=== PATIENT | female | born 2000 | race Hispanic/Latino ===

== ENCOUNTER 2019-01-24 17:35 | Emergency (ER) | payer MEDICAID ==
--- NOTE | 2019-01-24 18:00 | Emergency Department Report ---
Blank Doc - Documentation Documentation: This is a 18-year-old female that presents with vaginal bleeding. Stated is a bout 14 weeks . This initial assessment/diagnostic orders/clinical plan/treatment(s) is/are subject to change based on patient's health status, clinical progression and re- assessment by fellow clinical providers in the ED. Further treatment and workup at subsequent clinical providers discretion. Patient/guardians urged not to elope from the ED as their condition may be serious if not clinically assessed and managed. Initial orders include: 1- Patient sent to [facility] for further evaluation and treatment 2- labs 3- ua 4- OB US
[2019-01-24 18:02] VITALS: BP 127/59
[2019-01-24 18:42] LABS: Basophils % (Auto) 0.2 % (0.0-1.8); Eosinophils # (Auto) 0.1 K/mm3 (0.0-0.4); Eosinophils % (Auto) 1.5 % (0.0-4.3); Hematocrit 36.7 % (30.3-42.9); Lymphocytes # (Auto) 2.1 K/mm3 (1.2-5.4); Lymphocytes % (Auto) 21.1 % (13.4-35.0); Mean Corpuscular HGB Conc 35 % (30-34); Mean Corpuscular Volume 89 fl (79-97); Monocytes # (Auto) 0.6 K/mm3 (0.0-0.8); Monocytes % (Auto) 5.7 % (0.0-7.3); Platelet Count 197 K/mm3 (140-440); Red Blood Count 4.11 M/mm3 (3.65-5.03); Red Cell Distribution Width 14.6 % (13.2-15.2)
[2019-01-24 18:43] LABS: Bacteria,Urine 4+ /HPF (Negative); Bilirubin,Urine NEG (Negative); Blood,Urine MOD (Negative); Color,Urine Yellow (Yellow); Mucus,Urine FEW /HPF; Protein,Urine <15 mg/dL mg/dL (Negative); Urobilinogen,Urine < 2.0 mg/dL (<2.0)
--- NOTE | 2019-01-24 21:11 | Ultrasound Report ---
PROCEDURE: US OB >= 14 WEEKS FETUS HISTORY: vaginal bleeding FINDINGS: Real-time ultrasound of the pelvis was performed by transabdominal technique. There is a single live intrauterine gestation at approximately 14 weeks and 2 days with cardiac activity of 149 bpm. The fetus lies in transverse lie. There is a posterior grade 0 placenta. Cervical length was 3.8 cm which is normal. Neither ovary was identified. IMPRESSION: Single live intrauterine gestation at approximately 14 weeks and 2 days. Estimated date o f delivery is July 23, 2019 This document is electronically signed by Cristian Eaton MD., January 24 2019 09:09:40 PM ET
--- NOTE | 2019-01-24 21:48 | Emergency Department Report ---
ED Female HPI - General Chief complaint: Vaginal Bleeding Stated complaint: 14 WKS/PAIN/CRAMPS Time Seen by Provider: 01/24/19 18:00 Source: patient Mode of arrival: Ambulatory Limitations: No Limitations - History of Present Illness Initial comments: 18-year-old female that is 14 weeks comes in reporting that she had spotting. Patient reports she has not used any pads suggestive of a paper when wiping. Patient denies any abdominal pain or cramping. Patient is followed by Dr. Rita Maxwell her next appointment is 02/02/2019 and she has appointment on the with the OB specialist as she is had preeclampsia and a premature baby in the past. Patient is 2 para 1. H reports that she had an ultrasound done at her 6 weeks . MD Complaint: vaginal bleeding -: This afternoon Consistency: intermittent Improves with: none Are you Now?: Yes - Related Data Sexually active: Yes : 2 Para: 1 Allergies Allergy/AdvReac Type Severity Reaction Status Date / Time No Known Allergies Allergy Unverified 01/24/19 17:35 ED Review of Systems ROS: Stated complaint: 14 WKS/PAIN/CRAMPS Other details as noted in HPI Comment: All other systems reviewed and negative Constitutional: denies: chills, fever Eyes: denies: eye pain, eye discharge, vision change ENT: denies: ear pain, throat pain Respiratory: denies: cough, shortness of breath, wheezing Cardiovascular: denies: chest pain, palpitations Endocrine: no symptoms reported Gastrointestinal: denies: abdominal pain, nausea, diarrhea Genitourinary: denies: urgency, dysuria, discharge Musculoskeletal: denies: back pain, joint swelling, arthralgia Skin: denies: rash, lesions Neurological: denies: headache, weakness, paresthesias Psychiatric: denies: anxiety, depression Hematological/Lymphatic: denies: easy bleeding, easy bruising ED Past Medical Hx - Past Medical History Additional medical history: preclampsia - Social History Smoking Status: Never Smoker Substance Use Type: None ED Physical Exam - General Limitations: No Limitations General appearance: alert, in no apparent distress - Head Head exam: Present: atraumatic, normocephalic - Eye Eye exam: Present: normal appearance - ENT ENT exam: Present: mucous membranes moist - Neck Neck exam: Present: normal inspection - Respiratory Respiratory exam: Present: normal lung sounds bilaterally. Absent: respiratory distress - Cardiovascular Cardiovascular Exam: Present: regular rate, normal rhythm. Absent: systolic murmur, diastolic murmur, rubs, gallop - GI/Abdominal GI/Abdominal exam: Present: soft, normal bowel sounds - Neurological Exam Neurological exam: Present: alert, oriented X3 - Psychiatric Psychiatric exam: Present: normal affect, normal mood - Skin Skin exam: Present: warm, dry, intact, normal color. Absent: rash ED Course Vital Signs 01/24/19 18:00 Temperature 98.6 F Pulse Rate 89 Respiratory 16 Rate Blood Pressure 127/59 O2 Sat by Pulse 98 Oximetry ED Medical Decision Making - Lab Data Result diagrams: 01/24/19 18:20 - Radiology Data Radiology results: report reviewed In the greater than 14 weeks fetus. Impression single live intrauterine gestation at approximate 14 weeks and 2 days this may date of delivery 07/23/2019 - Medical Decision Making Patient is to follow-up with her OB doctor in 48 hours to have her repeat hCG. Or return to this emergency room to have her repeat hCG. She needs to follow-up which are primary OB in the next 3-5 days. Critical care attestation.: If time is entered above; I have spent that time in minutes in the direct care of this critically ill patient, excluding procedure time. ED Disposition Clinical Impression: Threatened miscarriage in early Disposition: DC-01 TO HOME OR SELFCARE Is pt being admited?: No Does the pt Need Aspirin: No Condition: Stable Instructions: Threatened Miscarriage (ED) Additional Instructions: Please follow-up with your [facility] [employer] provider in 48-72 hours for repeat hCG. Or return back to the emergency room to have a repeat hCG. This very important free to follow-up which her aspnet developer in the next 3-5 days. Give him a call in the morning and inform them that she went to the emergency room having vaginal bleeding and that you need to come in to have her hCG checked. Continue taking your vitamins as prescribed. Referrals: ,Ms. Braggluisana Magdaleno [Other] - 3-5 Days Forms: Work/School Release Form(ED), Accompanied Note
== END 2019-01-24 22:35 | disposition home or self-care (01) ==
LOC: ED 17:35
DX: O20.0 Threatened abortion (principal); Z3A.14 14 weeks gestation of pregnancy
CPT/HCPCS: 36415; 76805; 81001; 84702; 85025; 86850; 86900; 86901; 99284

== ENCOUNTER 2021-05-08 05:26 | Outpatient (CLI) | payer MEDICAID ==
[2021-05-08] MEDS ORDERED: LACTATED RINGERS 1,000 ML IV ONE (05:49)
[2021-05-08 05:54] VITALS: BP 121/65
[2021-05-08] MEDS ORDERED: LACTATED RINGERS 1,000 ML ONE (06:21)
[2021-05-08] MEDS ORDERED: NIFEdipine*For Tocolysis only* 10 MG CAPSULE PO NR (07:23)
[2021-05-08 07:33] LABS: Amphetamine Screen,Urine Negative; Benzodiazepines Screen,Urine Negative; Cocaine Screen,Urine Negative; Methadone Screen,Urine Negative; Opiate Screen,Urine Negative
[2021-05-08 07:47] LABS: Bacteria,Urine 4+ /HPF (Negative); Bilirubin,Urine NEG (Negative); Blood,Urine NEG (Negative); Color,Urine Yellow (Yellow); Mucus,Urine FEW /HPF; Protein,Urine <15 mg/dL mg/dL (Negative); Urobilinogen,Urine < 2.0 mg/dL (<2.0)
[2021-05-08 07:59] LABS: Cannabinoid Screen,Urine PRESUMPTIVE POSITIVE
== END 2021-05-08 10:16 | disposition home or self-care (01) ==
LOC: TRG 05:26 → APU 05:32 → TRG 10:16
PROVIDERS: ATTEND Obstetrics & Gynecology
DX: O26.893 Other specified pregnancy related conditions, third trimester (principal); R10.30 Lower abdominal pain, unspecified; O62.9 Abnormality of forces of labor, unspecified; Z3A.32 32 weeks gestation of pregnancy
CPT/HCPCS: 59025; 80307; 81001; 87076; 87086; 87186; J7120; 96360